=== PATIENT | female | born 1995 | race Caucasian/White ===

== ENCOUNTER 2018-03-27 19:41 | Emergency (ER) | payer BC ==
[~2018-03-27] VITALS: Ht 154.9 cm; Wt 62.7 kg
[2018-03-27 19:47] VITALS: BP 122/67; TEMP 98
[2018-03-27 20:34] VITALS: PULSE 65
== END 2018-03-27 20:34 | disposition home or self-care (01) ==
LOC: COL.ER 19:41
DX: S90.01XA Contusion of right ankle, initial encounter (principal); W20.8XXA Other cause of strike by thrown, projected or falling object, initial encounter; Y92.009 Unspecified place in unspecified non-institutional (private) residence as the place of occurrence of the external cause

== ENCOUNTER 2019-04-13 18:20 | Emergency (ER) | payer OTHER ==
[~2019-04-13] VITALS: Ht 154.9 cm; Wt 62.7 kg
[~2019-04-13 18:20] MED LIST: ACETAMINOPHEN W1 TA6 PO; ADD MED; CELEXA10 MG PO; CONCERTA; CONCERTA18 MG PO; FLAGYL500 MG PO; MULTIPLE VITAMI1 CAP PO; NAPROSYN500 MG PO; PROVENTIL0.09 MG/A1 IH; TRIAMCINOLONE A15 GM TP
[2019-04-13 18:39] VITALS: TEMP 99.5
[2019-04-13] MEDS ORDERED: NORCO 325 MG-51 TAB PO (21:12)
[2019-04-13] MEDS ORDERED: FLEXERIL 1010 MG/TAB PO (21:12)
[2019-04-13 21:43] VITALS: BP 115/72; PULSE 70
== END 2019-04-13 21:44 | disposition home or self-care (01) ==
LOC: COL.ER 18:20
DX: S13.9XXA Sprain of joints and ligaments of unspecified parts of neck, initial encounter (principal); S23.3XXA Sprain of ligaments of thoracic spine, initial encounter; Z88.0 Allergy status to penicillin; Z98.890 Other specified postprocedural states; V43.52XA Car driver injured in collision with other type car in traffic accident, initial encounter

== ENCOUNTER 2019-06-13 12:36 | Emergency (ER) | payer OTHER ==
[~2019-06-13] VITALS: Ht 154.9 cm; Wt 66.8 kg
[~2019-06-13 12:36] MED LIST changes: +FLEXERIL 1010 MG/TAB PO; +NORCO 325 MG-51 TAB PO
[2019-06-13 12:44] VITALS: BP 122/68; TEMP 97.7
[2019-06-13] MEDS ORDERED: PRENATAL TABLET PO (12:57)
[2019-06-13 14:11] VITALS: PULSE 83
== END 2019-06-13 14:12 | disposition home or self-care (01) ==
LOC: COL.ER 12:36
PROVIDERS: Physician Assistant
DX: Z32.01 Encounter for pregnancy test, result positive (principal)

== ENCOUNTER 2020-01-29 13:56 | Outpatient (CLI) | payer OTHER, MEDICAID ==
[~2020-01-29] VITALS: Ht 154.9 cm; Wt 83.2 kg
[~2020-01-29 13:56] MED LIST changes: +PRENATAL TABLET PO
--- NOTE | 2020-01-29 14:05 | NUR ---
Pt here with c/o vaginal bleeding that started at 1300 today that has increased over the last hour. 37.6 weeks gestation, G1L0. Pt to [facility], explained. Consent signed. SVE: 3-/-2, bag of vizcaino palpated and moderate amount of blood on exam glove. Pt wore a peripad in and very small amount noted on pad. Assessment complete. FHR reactive, no contractions noted at this time. Dr Hernandez here and updated. Will continue to monitor for 2 hours and will evaluate.
[2020-01-29 14:12] VITALS: BP 125/74; PULSE 86; TEMP 98.2
[2020-01-29] MEDS ORDERED: NATURAL IRON65 MG PO (14:15)
[2020-01-29 15:30] VITALS: BP 142/78; PULSE 97
--- NOTE | 2020-01-29 15:45 | NUR ---
Dr Hernandez at bedside, no bleeding noted on pad. SVE: 3/-2 and small amount of blood noted on exam glove. No contractions noted, orders received to DC home. 1555:Discharge instructions given, pt verbalizes understanding. Instructed pt to return if any more vaginal bleeding noted and R/O labor precautions given.
[2020-02-01] MEDS ORDERED: IBU600 MG PO (09:49)
[2020-02-01] MEDS ORDERED: PERCOCET 325 MG1 TA2 PO (09:49)
== END 2020-01-31 16:00 | disposition home or self-care (01) ==
LOC: LDRO 13:56 → LDR 14:05 → LDRO 01-31 14:05
DX: O46.93 Antepartum hemorrhage, unspecified, third trimester (principal); Z3A.37 37 weeks gestation of pregnancy
CPT/HCPCS: OP

== ENCOUNTER 2020-01-30 14:31 | Inpatient (IN) | payer OTHER, MEDICAID ==
[2020-01-30] VITALS (21 sets, daily range): BP systolic 109–150; BP diastolic 55–88; PULSE 62–117; TEMP 97.9–98.6
[~2020-01-30] VITALS: Ht 154.9 cm; Wt 82.7 kg
--- NOTE | 2020-01-30 14:30 | NUR ---
Patient arrives ambulatory with spouse with complaints of contractions that have worsened over this afternoon. Patient reports they are more painful and every 3-5 minutes apart. Patient denies leaking of fluid or vaginal bleeding. Reports normal movement. Patient changes into gown, EFM explained and placed. VS obtained. 1435- SVE per Latrice Flower RN 5-/-2 with BOWI. Patient repositioned WL and updated on plan of care. Dr. Hernandez notified by Latrice Flower RN, reviewed patient history, SVE, and FHR strip/contraction pattern. Patient desires epidural. Admit orders recieved, patient may have epidural when ready. Assessment completed. 1450- IV started in RH, labs obtained. LR infusing per protocol. Consents explained and signed. Denies questions. 8415- Report to Gladys Early RN who assumes care of patient.
[~2020-01-30 14:31] MED LIST changes: -IBU600 MG PO; -PERCOCET 325 MG1 TA2 PO
--- NOTE | 2020-01-30 15:34 | NUR ---
Dr. Hernandez to pt bedside. SVE per provider /-1. AROM at this time, clear fluid noted. Pt repositioned in bed for comfort.
[2020-01-30 15:49] LABS: BASO % 0.1 % (0.0-2.0); EOS % 0.2 % (0-4.0); GRAN # 9.9 (1.4-6.5); GRAN % 81.4 % (42.2-75.2); HEMOGLOBIN 11.5 g/dl (12.5-16.0); LYMPH # 1.7 (1.2-3.4); LYMPH % 14.2 % (20.0-51.0); MEAN CELL VOLUME 83 fl (80.0-100.0); MEAN CORPUSCULAR HEMOGLOBIN 26 pg (27.0-31.0); MEAN CORPUSCULAR HGB CONC 32 g/dl (33.0-37.0); MEAN PLATELET VOLUME 11.1 fl (7.4-10.4); MONO # 0.5 (0.1-0.6); MONO % 3.8 % (1.7-9.3); PLATELET COUNT 231 K/mm3 (130-400); RED BLOOD COUNT 4.37 M/mm3 (4.10-5.30); REDCELL DISTRIBUTION WIDTH-CV 17.5 % (11.5-14.5)
[2020-01-30 15:53] LABS: HEMATOCRIT 36.4 % (37.0-47.0)
--- NOTE | 2020-01-30 16:00 | NUR ---
Start Pitocin per Dr. Hernandez
--- NOTE | 2020-01-30 17:23 | NUR ---
1612 - Pt requesting epidural, Isela Liriano CRNA notified. 1623 - Isela Liriano CRNA to bedside. Pt repositioned sitting on side of bed. Epidural placed, test dose given at 1635. Pt repositioned WL, tolerated well. 1647 - Pitocin started at 2mu/ml/hr per induction protocol per Dr. Hernandez. 1657 - IUPC placed by Dr. Hernandez.
--- NOTE | 2020-01-30 17:53 | NUR ---
1739 - Attempted to insert Baltazar catheter, catheter would not pass baby's head. SVE /0. Dr. Hernandez notified.
--- NOTE | 2020-01-30 20:12 | NUR ---
180 - Variable decel noted, FHR into 100s. 1813 - RN to bedside. SVE /0. 1818 - Pt started pushing with contractions. 1820 - Dr. Hernandez notified, see physician notification. 1904 - Dr. Hernandez notified, see physician notification. 1918 - Dr. Hernandez to pt bedside for delivery. Nursery RN to bedside. Pt and room prepped for delivery. 1924 - Female infant delivered spontaneously by Dr. Hernandez. placed on mother's abdomen, care of infant transferred to A ASHLEY Rodriguez of nursery. Cord blood collected. 1931 - Spontaneous delivery of placenta by Dr. Hernandez. Bilateral labial and superficial perineal lacerations repaired by Dr. Hernandez. See physician notes. 1939 - Pt bladder drained using [place], 200ml urine out. Pericare provided, pt repositioned for comfort. Ice pack and warm blanket provided. Pt denies further needs at this time.
--- NOTE | 2020-01-30 21:35 | NUR ---
PT UP TO BR BUT UNABLE TO VOID. [facility]ARE INSTRUCTIONS REVIEWED. PT AMBULATES TO RM 207 ACCOMPANIED BY RN.
[2020-01-31 02:35] VITALS: BP 127/74; PULSE 93; TEMP 97.9
[2020-01-31 06:30] VITALS: BP 115/64; PULSE 84; TEMP 98.1
[2020-01-31 10:05] VITALS: BP 112/57; PULSE 98; TEMP 98.2
[2020-01-31 14:55] VITALS: BP 105/50; PULSE 98; TEMP 98.6
[2020-01-31 20:00] VITALS: BP 105/56; PULSE 83; TEMP 98.1
[2020-02-01 08:20] VITALS: BP 110/62; PULSE 90; TEMP 97.6
[2020-02-01] MEDS ORDERED: IBU600 MG PO (09:49)
[2020-02-01] MEDS ORDERED: PERCOCET 325 MG1 TA2 PO (09:49)
--- NOTE | 2020-02-01 13:32 | NUR ---
1300 DISCHARGE INSTRUCTIONS REVIEWED WITH PATIENT. PATIENT VERBALIZED UNDERSTANDING. 1315 ALL PERSONAL BELONGINGS GATHERED FROM PATIENT ROOM. PATIENT LEFT AMBULATORY AND IN NO APPARENT DISTRESS. PATIENT ACCOMPANIED BY THIS RN AND SPOUSE.
== END 2020-02-01 13:15 | disposition home or self-care (01) | DRG 807 ==
LOC: LDRO 14:31 → LDR 14:43 → LDRO 14:54 → OB 14:55 → LDR 14:55 → OB 21:52
PROVIDERS: Obstetrics & Gynecology; ADMIT Student in an Organized Health Care Education/Training Program
PROC: 10E0XZZ Delivery of Products of Conception, External Approach (ICD-10-PCS; principal; 2020-01-30)
PROC: 0HQ9XZZ Repair Perineum Skin, External Approach (ICD-10-PCS; 2020-01-30)
PROC: 0UQMXZZ Repair Vulva, External Approach (ICD-10-PCS; 2020-01-30)
DX: O99.02 Anemia complicating childbirth (principal); Z37.0 Single live birth; Z3A.38 38 weeks gestation of pregnancy; O70.0 First degree perineal laceration during delivery; O99.344 Other mental disorders complicating childbirth; F31.9 Bipolar disorder, unspecified
CPT/HCPCS: J2590; J7120

== ENCOUNTER → 2020-01-30 | Outpatient (CLI) | payer OTHER, MEDICAID ==
[~2020-01-30] VITALS: Ht 154.9 cm; Wt 82.7 kg
[~2020-01-30] MED LIST changes: +IBU600 MG PO; +NATURAL IRON65 MG PO; +PERCOCET 325 MG1 TA2 PO
--- NOTE | 2020-01-30 01:25 | NUR ---
Ambulatory to unit, accompanied by spouse. Oriented to room, monitor, plan of care. Pt reports "I was here yesterday afternoon. I think the contractions are getting closer together.:
[2020-01-30 01:41] VITALS: BP 122/78; PULSE 72; TEMP 98.2
--- NOTE | 2020-01-30 02:45 | NUR ---
SVE with no changes noted.
== END ==
LOC: LDRO 01:27
DX: O62.9 Abnormality of forces of labor, unspecified (principal); O46.93 Antepartum hemorrhage, unspecified, third trimester; Z3A.38 38 weeks gestation of pregnancy

== ENCOUNTER 2021-04-09 19:46 | Emergency (ER) | payer OTHER, MEDICAID ==
[~2021-04-09] VITALS: Ht 154.9 cm; Wt 75.5 kg
[~2021-04-09 19:46] MED LIST changes: +IBU600 MG PO; +PERCOCET 325 MG1 TA2 PO
[2021-04-09 20:03] VITALS: TEMP 98.6
[2021-04-09 20:35] LABS: BASO % 0.1 % (0.0-2.0); EOS # 0.1 (0.0-0.7); GRAN # 5.8 (1.4-6.5); GRAN % 66.6 % (42.2-75.2); HEMATOCRIT 35.5 % (37.0-47.0); HEMOGLOBIN 11.9 g/dl (12.5-16.0); LYMPH # 2.3 (1.2-3.4); LYMPH % 26.6 % (20.0-51.0); MEAN CELL VOLUME 81 fl (80.0-100.0); MEAN CORPUSCULAR HEMOGLOBIN 27 pg (27.0-31.0); MEAN CORPUSCULAR HGB CONC 34 g/dl (33.0-37.0); MEAN PLATELET VOLUME 10.4 fl (7.4-10.4); MONO # 0.5 (0.1-0.6); MONO % 5.4 % (1.7-9.3); PLATELET COUNT 234 K/mm3 (130-400); RED BLOOD COUNT 4.36 M/mm3 (4.10-5.30)
[2021-04-09 20:38] LABS: COLLECTION METHOD CLEAN CATCH
[2021-04-09 20:46] LABS: PH 7 (5-8); URINE APPEARANCE Turbid; URINE BACTERIA None Seen /hpf; URINE BILIRUBIN Negative (NEGATIVE); URINE BLOOD 3+ (NEGATIVE); URINE COLOR Yellow; URINE GLUCOSE Negative (NEGATIVE); URINE KETONE Negative (NEGATIVE); URINE LEUKOCYTE ESTERASE 3+ (NEGATIVE); URINE NITRATE Negative (NEGATIVE); URINE PROTEIN(semi-quant) 1+ (NEGATIVE); URINE UROBILINOGEN Negative (NEGATIVE)
[2021-04-09 21:37] VITALS: BP 124/62; PULSE 79
== END 2021-04-09 21:37 | disposition home or self-care (01) ==
LOC: COL.ER 19:46
PROVIDERS: Student in an Organized Health Care Education/Training Program
DX: O20.9 Hemorrhage in early pregnancy, unspecified (principal); Z3A.11 11 weeks gestation of pregnancy

== ENCOUNTER 2021-05-30 19:43 | Emergency (ER) | payer OTHER, MEDICAID ==
[~2021-05-30] VITALS: Ht 154.9 cm; Wt 83.6 kg
[2021-05-30 20:00] VITALS: TEMP 98.1
[2021-05-30 20:21] LABS: COLLECTION METHOD CLEAN CATCH
[2021-05-30 20:37] LABS: PH 7 (5-8); URINE APPEARANCE Hazy; URINE BACTERIA None Seen /hpf; URINE BILIRUBIN Negative (NEGATIVE); URINE BLOOD 1+ (NEGATIVE); URINE COLOR Straw; URINE GLUCOSE Negative (NEGATIVE); URINE KETONE Negative (NEGATIVE); URINE LEUKOCYTE ESTERASE Negative (NEGATIVE); URINE NITRATE Negative (NEGATIVE); URINE PROTEIN(semi-quant) Negative (NEGATIVE); URINE UROBILINOGEN Negative (NEGATIVE)
[2021-05-30 21:19] LABS: BASO % 0.1 % (0.0-2.0); EOS # 0.1 K/mm3 (0.0-0.7); EOS % 1.2 % (0-4.0); GRAN # 6.3 K/mm3 (1.4-6.5); GRAN % 69.3 % (42.2-75.2); HEMOGLOBIN 10.7 g/dl (12.5-16.0); LYMPH # 2.2 K/mm3 (1.2-3.4); LYMPH % 24.5 % (20.0-51.0); MEAN CELL VOLUME 83 fl (80.0-100.0); MEAN CORPUSCULAR HEMOGLOBIN 27 pg (27.0-31.0); MEAN CORPUSCULAR HGB CONC 33 g/dl (33.0-37.0); MEAN PLATELET VOLUME 10.5 fl (7.4-10.4); MONO # 0.4 K/mm3 (0.1-0.6); MONO % 4.5 % (1.7-9.3); PLATELET COUNT 205 K/mm3 (130-400); RED BLOOD COUNT 3.91 M/mm3 (4.10-5.30); REDCELL DISTRIBUTION WIDTH-CV 13.9 % (11.5-14.5)
[2021-05-30 21:24] LABS: HEMATOCRIT 32.5 % (37.0-47.0)
[2021-05-30 21:39] LABS: ALBUMIN 2.9 gm/dL (3.5-5.0); BILIRUBIN,TOTAL 0.1 mg/dL (0.2-1.2); CALCIUM 8.8 mg/dL (8.4-10.2); CREATININE, serum 0.57 mg/dL (0.57-1.11); POTASSIUM 3.4 mmol/L (3.5-4.5); TOTAL PROTEIN 6.7 gm/dL (6.2-8.1)
[2021-05-30 22:38] VITALS: BP 114/70; PULSE 76
== END 2021-05-30 22:38 | disposition home or self-care (01) ==
LOC: COL.ER 19:43
PROVIDERS: Nurse Practitioner
DX: O26.892 Other specified pregnancy related conditions, second trimester (principal); R10.2 Pelvic and perineal pain; Z3A.18 18 weeks gestation of pregnancy
CPT/HCPCS: J7030

== ENCOUNTER → 2021-08-28 | Outpatient (CLI) | payer OTHER, MEDICAID | LOC: DIA.ED 09:17 | DX: O24.419 Gestational diabetes mellitus in pregnancy, unspecified control (principal) | CPT/HCPCS: G0108 ==

== ENCOUNTER 2021-09-24 18:36 | Outpatient (CLI) | payer OTHER, MEDICAID ==
[~2021-09-24] VITALS: Ht 154.9 cm; Wt 90.5 kg
[2021-09-24 19:00] VITALS: BP 129/62; PULSE 100; TEMP 97.8
[2021-09-24] MEDS ORDERED: LEVEMIR FLEX100 U/ML SQ (19:05)
[2021-09-24] MEDS ORDERED: NATURAL IRON65 MG (19:05)
== END 2021-09-24 19:30 | disposition home or self-care (01) ==
LOC: LDRO 18:36
DX: O47.03 False labor before 37 completed weeks of gestation, third trimester (principal); Z3A.34 34 weeks gestation of pregnancy

== ENCOUNTER → 2021-09-25 | Outpatient (CLI) | payer OTHER, MEDICAID ==
[~2021-09-25] MED LIST changes: +LEVEMIR FLEX100 U/ML SQ; +NATURAL IRON65 MG
== END ==
LOC: DIA.ED 09:15
DX: O24.419 Gestational diabetes mellitus in pregnancy, unspecified control (principal)
CPT/HCPCS: G0108

== ENCOUNTER 2021-10-19 12:27 | Outpatient (CLI) | payer OTHER, MEDICAID ==
[~2021-10-19] VITALS: Ht 154.9 cm; Wt 93.6 kg
--- NOTE | 2021-10-19 12:47 | NUR ---
1247-38.3 week G2l1 patient to [facility] 2 with complaint of 10-15 min contractions since last night. Patient reports am BG 95 and has had no other concerns, no leaking of fluid and only some light pink discharge last night. Reports good FM. VSS, SVE /-2. Updated MD. 1334-Requested MD to review FHR monitor, orders recieved to place IV and give 1 liter LR. 1355-IV to right wrist. LR infsuing. 1415-Off EFM to bathroom. 1427-RN attempted SVE. Difficulty getting to posterior cerivx. ASHLEY Kline rechecks cervix, no change. 151-Patient off EFM to bathroom. 151-Updated MD on FHR strip and SVE. [facility] 1520-Reviewed instructions and precautions on labor and when to return. Verbalized understanding. Instructed to keep all apts and stay hydrated.
[2021-10-19 13:15] VITALS: BP 127/65; PULSE 83; TEMP 97.8
[2021-10-19 13:45] VITALS: BP 122/65; PULSE 93
[2021-10-19 14:15] VITALS: BP 122/64; PULSE 96
[2021-10-19 14:45] VITALS: BP 122/60; PULSE 73
[2021-10-19 15:15] VITALS: BP 123/57; PULSE 85
== END 2021-10-19 15:30 | disposition home or self-care (01) ==
LOC: LDRO 12:27 → LDR 12:47 → LDRO 15:30
DX: O47.1 False labor at or after 37 completed weeks of gestation (principal); Z3A.38 38 weeks gestation of pregnancy
CPT/HCPCS: OP; J7120

== ENCOUNTER 2021-10-20 02:55 | Inpatient (IN) | payer OTHER, MEDICAID ==
[~2021-10-20] VITALS: Ht 154.9 cm; Wt 93.6 kg
[2021-10-20] VITALS (35 sets, daily range): BP systolic 107–142; BP diastolic 55–84; PULSE 70–123; TEMP 97.5–98.9
[2021-10-20 04:47] LABS: BASO % 0.2 % (0.0-2.0); EOS # 0.1 K/mm3 (0.0-0.7); EOS % 0.7 % (0.0-4.0); GRAN % 77.3 % (42.2-75.2); LYMPH # 1.8 K/mm3 (1.2-3.4); LYMPH % 15.5 % (20.0-51.0); MEAN CELL VOLUME 75 fl (80.0-100.0); MEAN CORPUSCULAR HGB CONC 30 g/dl (33.0-37.0); MEAN PLATELET VOLUME 11.4 fl (7.4-10.4); MONO # 0.7 K/mm3 (0.1-0.6); MONO % 5.8 % (1.7-9.3); PLATELET COUNT 192 K/mm3 (130-400); RED BLOOD COUNT 4.13 M/mm3 (4.10-5.30)
[2021-10-20 05:24] LABS: HEMATOCRIT 30.8 % (37.0-47.0); HEMOGLOBIN 9.2 g/dl (12.5-16.0); MEAN CORPUSCULAR HEMOGLOBIN 22 pg (27-31)
[2021-10-20 05:26] LABS: REDCELL DISTRIBUTION WIDTH-CV 17.2 % (11.5-14.5)
[2021-10-21 04:30] VITALS: BP 118/65; PULSE 82; TEMP 97.8
[2021-10-21 07:00] VITALS: BP 114/69; PULSE 70; TEMP 97.6
[2021-10-21] MEDS ORDERED: IBU800 M1 PO (10:45)
== END 2021-10-21 14:55 | disposition home or self-care (01) | DRG 807 ==
LOC: LDRO 02:55 → LDR 03:33 → OB 13:30
PROVIDERS: ADMIT Obstetrics & Gynecology
PROC: 10E0XZZ Delivery of Products of Conception, External Approach (ICD-10-PCS; principal; 2021-10-20)
DX: O24.429 Gestational diabetes mellitus in childbirth, unspecified control (principal); Z37.0 Single live birth; O99.344 Other mental disorders complicating childbirth; F31.9 Bipolar disorder, unspecified; O99.52 Diseases of the respiratory system complicating childbirth; J45.909 Unspecified asthma, uncomplicated; O99.62 Diseases of the digestive system complicating childbirth; K21.9 Gastro-esophageal reflux disease without esophagitis; O99.02 Anemia complicating childbirth; D64.9 Anemia, unspecified; O76 Abnormality in fetal heart rate and rhythm complicating labor and delivery; O71.82 Other specified trauma to perineum and vulva; Z23 Encounter for immunization; Z3A.39 39 weeks gestation of pregnancy
CPT/HCPCS: J2590; J7120